=== PATIENT | female | born 1985 | race African-American/Black ===

== ENCOUNTER 2018-04-24 14:00 | Emergency (ER) | payer OTHER ==
[2018-04-24 15:09] VITALS: BP 128/83; PULSE 65; TEMP 98.8; BMI 32.1
--- NOTE | 2018-04-24 15:10 | PDOC ---
Rapid Medical Evaluation Chief Complaint: Pain Time Seen by Provider: 04/24/18 15:07 Medical Evaluation: 04/24/18 15:07 c/o right pelvic pain x1 week. + nausea, denies fever/ chills LMP 03/12/18 denies urinary symptoms history of right ovarian cust Pe: patient alert ox3 has suprapubic pain A: right pelvic pain P'; labs UA TVUS patient to the ER for further management of care 04/24/18 15:10 Discharge Disposition - Diagnosis Pelvic pain - Referrals - Patient Instructions - Post Discharge Activity
--- NOTE | 2018-04-24 15:27 | PDOC ---
History of Present Illness - General Chief Complaint: Pain Stated Complaint: PAIN Time Seen by Provider: 04/24/18 15:07 History Source: Patient Exam Limitations: No Limitations - History of Present Illness Travel History: No Initial Comments: 04/24/18 15:23 32 yr female with one week suprapubic pain denies vag bleeding or urinary dysfunction. Pt has history of ovarian cyst states this feels similair to the past cyst. LMP 03/18/18 no fever no chills no back pain Timing/Duration: reports: constant Quality: reports: moderate, fullness Abdominal Pain Onset Location: reports: suprapubic Past History - Past Medical History Allergies/Adverse Reactions: Allergies Allergy/AdvReac Type Severity Reaction Status Date / Time No Known Allergies Allergy Verified 04/24/18 15:07 Home Medications: Ambulatory Orders Ibuprofen 800 mg PO TID PRN #20 tablet 04/24/18 COPD: No - Suicide/Smoking/Psychosocial Hx Smoking History: Current every day smoker Number of Cigarettes Smoked Daily: 4 Information on smoking cessation initiated: Yes 'Breaking Loose' booklet given: 04/24/18 Hx Alcohol Use: No Drug/Substance Use Hx: No Abd/GI Specific PMHX - Complaint Specific PMHX Colitis: No Diverticulitis: No Gall Bladder Disease: No GERD: No Hepatitis: No Review of Systems - Review of Systems Able to Perform ROS?: Yes Is the patient limited Latvian proficient: No Constitutional: No: Symptoms Reported HEENTM: No: Symptoms Reported Respiratory: No: Symptoms reported Cardiac (ROS): No: Symptoms Reported ABD/GI: Yes: Symptoms Reported *Physical Exam - Vital Signs Last Vital Signs Temp Pulse Resp BP Pulse Ox 98.8 F 65 18 128/83 99 04/24/18 15:07 04/24/18 15:07 04/24/18 15:07 04/24/18 15:07 04/24/18 15:07 - Physical Exam General Appearance: Yes: Nourished, Appropriately Dressed HEENT: positive: EOMI, SAVANAH Neck: positive: Supple. negative: Tender Respiratory/Chest: positive: Lungs Clear, Normal Breath Sounds Cardiovascular: positive: Regular Rhythm, Regular Rate Gastrointestinal/Abdominal: positive: Normal Bowel Sounds, Tender (suprapubic rebound tenderness ), Soft Musculoskeletal: positive: Normal Inspection Extremity: positive: Normal Capillary Refill, Normal Inspection, Normal Range of Motion Integumentary: positive: Normal Color, Dry, Warm *DC/Admit/Observation/Transfer Diagnosis at time of Disposition: Pelvic pain Ovarian cyst Qualifiers: Laterality: right Qualified Code(s): N83.201 - Unspecified ovarian cyst, right side - Discharge Dispostion Disposition: HOME Condition at time of disposition: Good - Prescriptions Prescriptions: Ibuprofen 800 mg PO TID PRN #20 tablet PRN Reason: Pain - Referrals Referrals: Rosa Maria Cui MD [Staff Physician] - - Patient Instructions Printed Discharge Instructions: DI for Ovarian Cyst Additional Instructions: follow with the firmware test engineer for follow up call Friday to make appointment take ibuprofen for pain as needed apply a warm heating pad to your lower abdomen for 30 minutes every few hours, this can help with pain - Post Discharge Activity
[2018-04-24 15:46] LABS: URINE APPEARANCE SLCLOUDY; URINE BILIRUBIN NEGATIVE (<2.0 mg/dL); URINE COLOR LTYELLOW; URINE GLUCOSE (UA) NEGATIVE (NEGATIVE); URINE KETONE NEGATIVE (NEGATIVE); URINE LEUK ESTERASE 1+ (NEGATIVE); URINE NITRITE NEGATIVE (NEGATIVE); URINE PROTEIN NEGATIVE (NEGATIVE); URINE UROBILINOGEN NEGATIVE mg/dL (0.2-1.0)
[2018-04-24] MEDS ORDERED: IBUPROFEN 400 MG TABLET (FP) PO ONE ×2 (16:33→16:37)
[2018-04-24 17:02] LABS: EPI CELLS RARE /HPF (FEW)
== END 2018-04-24 16:46 | disposition home or self-care (01) ==
LOC: JERFT 14:00 → JER 14:00 → JERFT 16:46
DX: N83.201 Unspecified ovarian cyst, right side (principal); F17.210 Nicotine dependence, cigarettes, uncomplicated
CPT/HCPCS: 36415; 76830-TC; 81003; 81015; 84703; 87086; 87491; 87591; 99281-25

== ENCOUNTER 2020-05-05 13:55 | Inpatient (IN) | payer OTHER ==
[2020-05-05 15:02] LABS: BASO % 0.3 % (0-2.0); EOS % 0.6 % (0-4.5); HEMATOCRIT 39.1 % (32.4-45.2); HEMOGLOBIN 12.8 GM/dL (10.7-15.3); LYMPH % 20.3 % (8-40); MCHC 32.7 g/dl (32.0-36.0); MEAN CELL VOLUME 76.6 fl (80-96); MEAN PLT VOLUME 8.4 fl (7.5-11.1); MONO % 7.6 % (3.8-10.2); NEUT % 71.2 % (42.8-82.8); PLATELET COUNT 158 K/MM3 (134-434); RBC 5.11 M/mm3 (3.60-5.2); RDW 24.6 % (11.6-15.6); WHITE BLOOD COUNT 6.8 K/mm3 (4.0-10.0)
[2020-05-05 15:07] LABS: INR 0.99 (0.83-1.09); PROTHROMBIN TIME (PATIENT) 12.2 SEC (9.7-13.0)
[2020-05-05 15:18] VITALS: BMI 36.0
[2020-05-05 15:21] LABS: POTASSIUM 3.9 mmol/L (3.5-5.1)
[2020-05-05 15:22] LABS: CALCIUM 9.2 mg/dL (8.5-10.1)
[2020-05-05 15:23] LABS: BLOOD UREA NITROGEN 6.9 mg/dL (7-18)
[2020-05-05 15:26] LABS: CREATININE 0.5 mg/dL (0.55-1.3)
[2020-05-05] MEDS ORDERED: ELECTROLYTE-148 SOLN 1,000 ML IV SCH (15:30)
[2020-05-05 15:49] LABS: SYPHILIS W/ RPR CONF NON-REACTIVE (NONREACTIVE)
[2020-05-05 16:18] LABS: HIV INTERPRETATION NEGATIVE (NEGATIVE)
[2020-05-05] MEDS ORDERED: ONDANSETRON 4 MG/2 ML VIAL IVPUSH PRN (20:09)
[2020-05-05] MEDS ORDERED: OXYTOCIN 20 UNITS in 0.9% NS 20 UNIT/1,000 ML INFUS.BAG IV ONE (20:10)
[2020-05-05] MEDS ORDERED: morphine SULFATE/PF 0.5 MG/ML (2cc Syringe - QUVA) ONE (20:11)
[2020-05-05] MEDS ORDERED: ePHEDrine SULFATE 50 MG/1 ML AMPULE ONE (20:12)
[2020-05-05] MEDS ORDERED: ceFAZolin SODIUM 1 GM VIAL ONE (20:21)
[2020-05-05] MEDS ORDERED: OXYTOCIN 10 UNITS/ML VIAL ONE (20:24)
[2020-05-05] MEDS ORDERED: PHENYLEPHRINE HCL 10 MG/1 ML SINGLE DOSE VIAL ONE (20:45)
[2020-05-05] MEDS ORDERED: SENNOSIDES/DOCUSATE COMBO (SENNA PLUS) TABLET (UD) PO PRN (22:51)
[2020-05-05] MEDS ORDERED: WITCH HAZEL 50% (TUCKS) 40 PAD/JAR PAD TP PRN (22:51)
[2020-05-05] MEDS ORDERED: METHYLERGONOVINE MALEATE 0.2 MG/1 ML AMP IM PRN (22:51)
[2020-05-05] MEDS ORDERED: BENZOCAINE 20% 57 GM BOTTLE TP PRN (22:51)
[2020-05-05] MEDS ORDERED: CITRIC ACID/SODIUM CITRATE 30 ML UNIT-DOSE CUP PO ONE (23:09)
[2020-05-05] MEDS ORDERED: OXYTOCIN 20 UNITS in 0.9% NS 20 UNIT/1,000 ML INFUS.BAG IV SCH (23:15)
[2020-05-05 23:50] LABS: CORD BASE EXCESS -6.6 mmol/L (0-2); CORD HCO3 21.1 mmHg (20-29); CORD pH 7.251 (7.14-7.44)
[2020-05-05 23:57] LABS: CORD HCO3 24.3 mmHg (20-29); CORD PCO2 72.6 mmHg (30-78); CORD pH 7.142 (7.14-7.44)
[2020-05-06] MEDS: KETOROLAC TROMETHAMINE 30 MG/1 ML VIAL IVPUSH PRN ×2 (00:49→08:33)
[2020-05-06] MEDS: CEFAZOLIN 1 GM/D5W 1 GM/50 ML BAG IVPB SCH ×3 (02:26→18:00)
[2020-05-06 08:02] LABS: BASO % 0.5 % (0-2.0); EOS % 0.3 % (0-4.5); HEMATOCRIT 33.1 % (32.4-45.2); HEMOGLOBIN 11.1 GM/dL (10.7-15.3); LYMPH % 15.2 % (8-40); MCH 25.6 pg (25.7-33.7); MCHC 33.6 g/dl (32.0-36.0); MEAN CELL VOLUME 76.1 fl (80-96); MEAN PLT VOLUME 8.3 fl (7.5-11.1); MONO % 7.4 % (3.8-10.2); NEUT % 76.6 % (42.8-82.8); PLATELET COUNT 153 K/MM3 (134-434); RBC 4.35 M/mm3 (3.60-5.2); RDW 24.2 % (11.6-15.6); WHITE BLOOD COUNT 8.7 K/mm3 (4.0-10.0)
[2020-05-06] MEDS: PRENATAL VITAMINS W/ FOLIC ACID TABLET (FP) PO SCH (09:06)
[2020-05-06] MEDS: DOCUSATE SODIUM 100 MG CAPSULE (FP) PO SCH ×2 (09:06→21:10)
[2020-05-06] MEDS: ACETAMINOPHEN 325 MG TABLET (FP) PO PRN ×2 (16:05→21:11)
[2020-05-06] MEDS: IBUPROFEN 600 MG TABLET (FP) PO PRN ×2 (16:05→21:11)
[2020-05-06] MEDS: SIMETHICONE 80 MG TAB.CHEW (FP) PO PRN (21:12)
[2020-05-07] MEDS: IBUPROFEN 600 MG TABLET (FP) PO PRN ×3 (03:45→15:16)
[2020-05-07] MEDS: ACETAMINOPHEN 325 MG TABLET (FP) PO PRN ×3 (03:46→21:01)
[2020-05-07] MEDS: SIMETHICONE 80 MG TAB.CHEW (FP) PO PRN ×3 (03:46→21:03)
[2020-05-07] MEDS: KETOROLAC TROMETHAMINE 30 MG/1 ML VIAL IVPUSH PRN (08:45)
[2020-05-07] MEDS: DOCUSATE SODIUM 100 MG CAPSULE (FP) PO SCH ×2 (10:00→21:01)
[2020-05-07] MEDS: PRENATAL VITAMINS W/ FOLIC ACID TABLET (FP) PO SCH (10:00)
[2020-05-07] MEDS: oxyCODONE HCL 5 MG TABLET PO PRN ×2 (15:16→21:02)
[2020-05-07 23:01] VITALS: BP 134/79; PULSE 92; TEMP 97.8
[2020-05-08] MEDS: IBUPROFEN 600 MG TABLET (FP) PO PRN ×2 (01:16→08:13)
[2020-05-08] MEDS: oxyCODONE HCL 5 MG TABLET PO PRN ×2 (01:16→08:14)
[2020-05-08 08:09] LABS: BASO % 0.4 % (0-2.0); EOS % 2.2 % (0-4.5); HEMOGLOBIN 10.9 GM/dL (10.7-15.3); LYMPH % 24.7 % (8-40); MCH 25.7 pg (25.7-33.7); MCHC 33.1 g/dl (32.0-36.0); MEAN CELL VOLUME 77.7 fl (80-96); MEAN PLT VOLUME 7.7 fl (7.5-11.1); MONO % 8.8 % (3.8-10.2); NEUT % 63.9 % (42.8-82.8); PLATELET COUNT 177 K/MM3 (134-434); RBC 4.25 M/mm3 (3.60-5.2); RDW 24.1 % (11.6-15.6); WHITE BLOOD COUNT 7.3 K/mm3 (4.0-10.0)
[2020-05-08] MEDS: DOCUSATE SODIUM 100 MG CAPSULE (FP) PO SCH (09:24)
[2020-05-08] MEDS: PRENATAL VITAMINS W/ FOLIC ACID TABLET (FP) PO SCH (09:24)
== END 2020-05-08 12:00 | disposition home or self-care (01) | DRG 540 ==
LOC: JLDR 13:55 → J3W 23:55
PROVIDERS: ADMIT Obstetrics & Gynecology; ATTEND Obstetrics & Gynecology
PROC: 10D00Z1 Extraction of Products of Conception, Low, Open Approach (ICD-10-PCS; principal; 2020-05-05)
DX: O41.03X0 Oligohydramnios, third trimester, not applicable or unspecified (principal); O34.219 Maternal care for unspecified type scar from previous cesarean delivery; Z3A.37 37 weeks gestation of pregnancy; Z37.0 Single live birth
CPT/HCPCS: 36415; 36600; 80048; 82803; 85025; 85610; 85730; 86780; 86850; 86900; 86901; 87389; 88307-TC; C9803; U0003